=== PATIENT | male | born 1990 | race Caucasian/White ===

== ENCOUNTER 2019-08-13 07:05 | Emergency (ER) | payer BC ==
[2019-08-13 07:20] VITALS: BP 143/69
[2019-08-13] MEDS ORDERED: Ibuprofen TAB* 600 MG PO ONE (07:38)
--- NOTE | 2019-08-13 07:38 | UC ---
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 Full sensation in left ear x 2 days with progression to pain and decreased hearing. No headache, fever or dizziness. 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 - History of Current Complaint Chief Complaint: UCEar Stated Complaint: LT EAR PAIN Time Seen by Provider: 08/13/19 07:31 Hx Obtained From: Patient Onset/Duration: Gradual Onset, Lasting Days - 2 Severity Initially: Mild Severity Currently: Moderate Pain Intensity: 7 Aggravating Factors: Other - touch Alleviating Factors: Nothing Associated Signs/Symptoms: Positive: Hearing Loss, Swelling @ - pre-auricular - Allergies/Home Medications Allergies/Adverse Reactions: Allergies Allergy/AdvReac Type Severity Reaction Status Date / Time No Known Allergies Allergy Verified 08/13/19 07:21 Home Medications: Home Medications Acetaminophen [Tylenol Extra Strength] 2 tab PO ONCE 08/13/19 [History Confirmed 08/13/19] PMH/Surg Hx/FS Hx/Imm Hx Previously Healthy: Yes - no hx of hypertension - Surgical History Surgical History: Yes Surgery Procedure, Year, and Place: T&A - Family History Known Family History: Positive: Hypertension - paternal grandparetns. - Social History Occupation: Employed Full-time Lives: With Family Alcohol Use: Occasionally Substance Use Type: None Smoking Status (MU): Never Smoked Tobacco Review of Systems All Other Systems Reviewed And Are Negative: Yes Constitutional: Positive: Fatigue - poor sleep last pm ENT: Positive: Sore Throat - mild, scratchy, could be from coaching., Ear Ache Respiratory: Negative: Shortness Of Breath, Cough Cardiovascular: Negative: Palpitations, Chest Pain Gastrointestinal: Positive: Negative Musculoskeletal: Positive: Negative Neurological: Positive: Negative Psychological: Positive: Negative Is Patient Immunocompromised?: No Physical Exam Triage Information Reviewed: Yes Appearance: Well-Appearing, Pain Distress - mild to moderate. Vital Signs: Initial Vital Signs Temp 98 F 08/13/19 07:17 Pulse 68 08/13/19 07:17 Resp 18 08/13/19 07:17 BP 143/69 08/13/19 07:17 Pulse Ox 99 08/13/19 07:17 Vital Signs Reviewed: Yes ENT: Positive: Pharynx normal, TMs normal - on right, partially obscured on the left, TM dull - on left, Other - left ear canal with swelling, erythema and moderate debris in the canal. Mild pre-auricular swelling, no adenopathy. Dental Exam: Normal Neck: Positive: Supple, Nontender, No Lymphadenopathy Respiratory: Positive: Lungs clear, Normal breath sounds Cardiovascular: Positive: RRR, No Murmur Musculoskeletal Exam: Normal Neurological Exam: Normal Psychological Exam: Normal Skin Exam: Normal Ear Complaint Course/Dx - Course Course Of Treatment: cephalexin and ear drops, ibuprofen for pain - Differential Dx/Diagnosis Differential Diagnosis/HQI/PQRI: Otitis Externa, Otitis Media Provider Diagnosis: External otitis of left ear Discharge ED - Sign-Out/Discharge Documenting (check all that apply): Patient Departure All imaging exams completed and their final reports reviewed: No Studies - Discharge Plan Condition: Stable Disposition: HOME Prescriptions: Cephalexin CAP* [Keflex 500 CAP*] 500 mg PO TID #15 cap Ciprofloxacin/Hydrocortisone [Cipro Hc] 1 maliha OT BID #1 bottle Patient Education Materials: Otitis Externa (ED) Referrals: No Primary Care Phys,NOPCP [Primary Care Provider] - Additional Instructions: Your blood pressure reading is elevated today at 143/69; please ensure that you have a re-check of blood pressure within a month. Take cephalexin 500mg three times daily for 5 days, and use cipro drops twice daily for 7 days. Follow up if you are not seeing improvement after 48 hours of treatment. Use ibuprofen 600mg up to 4 times daily for relief of pain. - Billing Disposition and Condition Condition: STABLE Disposition: Home
[2019-08-13] MEDS ORDERED: Cephalexin CAP* 500 MG PO ONE (07:39)
--- NOTE | 2019-08-13 15:45 | UC ---
- Progress Note Progress Note: Seen today with otitis externa. Pain has not improved with use of ibuprofen, and is concerned about having intolerable pain. 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 Course/Dx - Diagnoses Provider Diagnoses: External otitis of left ear Discharge ED - Sign-Out/Discharge Documenting (check all that apply): Patient Departure All imaging exams completed and their final reports reviewed: No Studies - Discharge Plan Condition: Stable Disposition: HOME Prescriptions: Acetaminop/Codeine 30 MG TAB* [Tylenol/Codeine 30 MG TAB*] 2 tab PO Q6H PRN #10 tab MDD 6 PRN Reason: Pain - Moderate Cephalexin CAP* [Keflex 500 CAP*] 500 mg PO TID #15 cap Ciprofloxacin/Hydrocortisone [Cipro Hc] 1 maliha OT BID #1 bottle Patient Education Materials: Otitis Externa (ED) Referrals: No Primary Care Phys,NOPCP [Primary Care Provider] - Additional Instructions: Your blood pressure reading is elevated today at 143/69; please ensure that you have a re-check of blood pressure within a month. Take cephalexin 500mg three times daily for 5 days, and use cipro drops twice daily for 7 days. Follow up if you are not seeing improvement after 48 hours of treatment. Use ibuprofen 600mg up to 4 times daily for relief of pain. - Billing Disposition and Condition Condition: STABLE Disposition: Home
== END 2019-08-13 07:56 | disposition home or self-care (01) ==
LOC: UCCORT 07:05
DX: H60.92 Unspecified otitis externa, left ear (principal)
CPT/HCPCS: 99202; A9270-GY; G0463

== ENCOUNTER 2019-08-28 09:28 | Emergency (ER) | payer BC ==
[2019-08-28 09:43] VITALS: BP 151/89
--- NOTE | 2019-08-28 10:15 | UC ---
Ear Complaint HPI - HPI Summary HPI Summary: 29-year-old male comes in with chief complaint of left ear pain. Patient has a history of recurrent ear infections in the left ear when he was child then had ear tubes in the left ear. 2 weeks ago the patient was treated for an otitis media and externa with Keflex and Cortisporin otic. After started those antibiotics pain in the left ear got worse and then he started drainage in the left ear which he believes his left TM ruptured at that time. Yesterday started with the left ear pain again which reminds him of the beginning of the ear infection. No fevers no chills. Patient is not seen an ENT since he was a child. He has not been swimming recently. - History of Current Complaint Chief Complaint: UCEar Stated Complaint: LT EAR COMPLAINT Time Seen by Provider: 08/28/19 10:02 Pain Intensity: 0 - Allergies/Home Medications Allergies/Adverse Reactions: Allergies Allergy/AdvReac Type Severity Reaction Status Date / Time No Known Allergies Allergy Verified 08/28/19 09:39 PMH/Surg Hx/FS Hx/Imm Hx Previously Healthy: Yes - Surgical History Surgical History: Yes Surgery Procedure, Year, and Place: T&A - Family History Known Family History: Positive: Hypertension - paternal grandparetns. - Social History Alcohol Use: Occasionally Substance Use Type: None Smoking Status (MU): Never Smoked Tobacco Review of Systems All Other Systems Reviewed And Are Negative: Yes Constitutional: Positive: Negative Skin: Positive: Negative Eyes: Positive: Negative ENT: Positive: Ear Ache Respiratory: Positive: Negative Cardiovascular: Positive: Negative Gastrointestinal: Positive: Negative Motor: Positive: Negative Neurovascular: Positive: Negative Musculoskeletal: Positive: Negative Neurological: Positive: Negative Psychological: Positive: Negative Is Patient Immunocompromised?: No Physical Exam Triage Information Reviewed: Yes Appearance: Well-Appearing, No Pain Distress, Well-Nourished Vital Signs: Initial Vital Signs Temp 98.1 F 08/28/19 09:40 Pulse 68 08/28/19 09:40 Resp 14 08/28/19 09:40 BP 151/89 08/28/19 09:40 Pulse Ox 100 08/28/19 09:40 Vital Signs Reviewed: Yes Eye Exam: Normal Eyes: Positive: Conjunctiva Clear ENT: Positive: Pharynx normal, Other - Right TM is normal. Left TM is opaque and irregular in shape. There is some debris in the proximal ear canal. Neck: Positive: Supple Respiratory: Positive: Lungs clear, Normal breath sounds, No respiratory distress Cardiovascular: Positive: RRR Musculoskeletal: Positive: Strength Intact, ROM Intact Neurological: Positive: Alert, Muscle Tone Normal Psychological: Positive: Age Appropriate Behavior Skin Exam: Normal Ear Complaint Course/Dx - Course Course Of Treatment: Because the eardrum on the left is opaque I cannot tell if it's due to pus or scarring. I cannot also fully evaluate for cholesteatoma. There is some debris apparent drainage in the ear canal. We will treat for otitis media and otitis externa at this time. I recommended follow-up with ENT. Reevaluate sooner if worse or any questions or concerns. - Differential Dx/Diagnosis Provider Diagnosis: Left ear pain, Left otitis externa Discharge ED - Sign-Out/Discharge Documenting (check all that apply): Patient Departure All imaging exams completed and their final reports reviewed: No Studies - Discharge Plan Condition: Stable Disposition: HOME Prescriptions: Amoxicillin/Clavulanate TAB* [Augmentin TAB 875*] 875 mg PO BID #20 tab Ofloxacin 0.3% (Ear Drop)* [Floxin 0.3% OTIC.BRYANNA (Ear Drop)] 5 drop LEFT EAR BID #1 btl Patient Education Materials: Otitis Externa (ED), Earache (ED) Referrals: Paresh Lopez MD [Medical Doctor] - Russell Westbrook MD [Medical Doctor] - Additional Instructions: FOLLOW UP WITH ENT FOR FURTHER EVALUATION AND CARE OF YOUR LEFT EAR. GET REEVALUATED SOONER IF NOT IMPROVING OR YOUR CONDITION WORSENS OR ANY QUESTIONS OR CONCERNS - Billing Disposition and Condition Condition: STABLE Disposition: Home
== END 2019-08-28 10:20 | disposition home or self-care (01) ==
LOC: UCCORT 09:28
DX: H60.92 Unspecified otitis externa, left ear (principal); H92.02 Otalgia, left ear
CPT/HCPCS: 99212; G0463